=== PATIENT | female | born 1960 | race Hispanic/Latino ===

== ENCOUNTER 2023-08-20 07:15 | Day surgery (SDC) | payer OTHER ==
[2023-08-17 12:53] LABS: BASOPHILS # (AUTO) 0.05 K/uL (0.00-0.20); BASOPHILS % (AUTO) 0.7 % (0.0-5.0); EOSINOPHILS # (AUTO) 0.12 K/uL (0.00-0.70); EOSINOPHILS % (AUTO) 1.7 % (0.0-8.0); HEMATOCRIT 34.7 % (36-48); IMMATURE GRANULOCYTE ABSOLUTE 0.02 K/uL (0-1); LYMPHOCYTES # (AUTO) 2.3 K/uL (1.0-4.8); LYMPHOCYTES % (AUTO) 31.2 % (21.0-51.0); MEAN CORPUSCULAR HEMOGLOBIN 29.1 pg (27.0-33.0); MEAN CORPUSCULAR HGB CONC 32.9 g/dL (32.0-36.0); MEAN CORPUSCULAR VOLUME 88.5 fL (79-99); MONOCYTES # (AUTO) 0.5 K/uL (0.1-1.0); MONOCYTES % (AUTO) 7.1 % (3.0-13.0); NEUTROPHILS # (AUTO) 4.3 K/uL (1.8-7.7); PLATELET COUNT (AUTO) 259 K/uL (130-400); RED BLOOD CELL COUNT(AUTO) 3.92 MIL/uL (4.00-5.50); RED CELL DISTRIBUTION WIDTH 13.4 % (11.0-15.5); WHITE BLOOD COUNT (AUTO) 7.2 K/uL (4.8-10.8)
[2023-08-17 13:04] LABS: CREATININE 0.8 mg/dL (0.5-1.5); POTASSIUM 3.8 mmol/L (3.5-5.1)
[2023-08-17 13:08] LABS: INR 0.94 (0.85-1.15)
[2023-08-17 13:35] VITALS: BP 160/75; PULSE 67; RESP 18
[~2023-08-20] VITALS: Ht 157.5 cm; Wt 83.2 kg
[2023-08-20] VITALS (17 sets, daily range): BP systolic 105–135; BP diastolic 56–74; PULSE 62–70; RESP 11–19
[~2023-08-20 07:15] MED LIST: AMLO-388 PO; INSLAN SQ; LABE200T7 PO; METF-446 PO; OZEMPIC SQ; ROSU20TA73 PO
[2023-08-20] MEDS ORDERED: 0.9%NACL 1000ML 1,000 ML IV ONE (07:51)
[2023-08-20] MEDS ORDERED: CEFAZOLIN SODIUM 2 GM VIAL ONE (07:51)
[2023-08-20] MEDS ORDERED: MIDAZOLAM HCL 1 MG/ML 2ML VIAL ONE (09:05)
[2023-08-20] MEDS ORDERED: PROPOFOL 10 MG/ML 20ML VIAL IV ONE (09:05)
[2023-08-20] MEDS ORDERED: FENTANYL CITRATE PF 50 MCG/1 ML 2ML VIAL ONE ×2 (09:05→10:04)
[2023-08-20] MEDS ORDERED: ONDANSETRON 4MG INJ ONE (09:09)
[2023-08-20] MEDS ORDERED: LIDOCAINE HCL/EPINEPHRINE 50 ML VIAL IJ ONE (09:14)
[2023-08-20] MEDS ORDERED: BACITRACIN 28.4 GM OINT TP ONE (09:14)
[2023-08-20] MEDS ORDERED: EPHEDRINE SULFATE 50 MG/ML AMPULE ONE (09:33)
[2023-08-20] MEDS ORDERED: PHENYLEPHRINE HCL 10 MG/ML 1ML VIAL IV ONE (09:50)
[2023-08-20] MEDS ORDERED: DEXTROSE 50%-WATER 50 ML DISP.SYRIN IV ONE (10:28)
== END 2023-08-20 11:50 | disposition home or self-care (01) ==
LOC: DAH 07:15
PROVIDERS: ATTEND Otolaryngology Plastic Surgery within the Head & Neck
DX: L91.0 Hypertrophic scar (principal); I10 Essential (primary) hypertension; K21.9 Gastro-esophageal reflux disease without esophagitis; E66.01 Morbid (severe) obesity due to excess calories; E11.9 Type 2 diabetes mellitus without complications; Z79.01 Long term (current) use of anticoagulants; Z79.899 Other long term (current) drug therapy; Z68.31 Body mass index [BMI] 31.0-31.9, adult; Z79.84 Long term (current) use of oral hypoglycemic drugs; Z82.49 Family history of ischemic heart disease and other diseases of the circulatory system; Z83.3 Family history of diabetes mellitus; Z80.3 Family history of malignant neoplasm of breast; Z79.4 Long term (current) use of insulin
CPT/HCPCS: 80048; 85025; 85610; 36415; 11442; 12051; 82948 ×3; 88305; A6260; A4663; A4606; J3010 ×2; J7030; J7070; J3490; J2250; J2704; J2405; J2371; J0690; A4649; A4215; A4223; A4222; A4221; A4600